=== PATIENT | female | born 1965 | race African-American/Black ===

== ENCOUNTER 2021-05-22 17:31 | Emergency (ER) | payer OTHER, MEDICAID ==
[2021-05-23] MEDS ORDERED: ACET-2708 MT (03:27)
== END 2021-05-22 19:12 | disposition left against medical advice (07) ==
LOC: ER 17:51
DX: Z53.21 Procedure and treatment not carried out due to patient leaving prior to being seen by health care provider (principal)

== ENCOUNTER 2021-05-23 02:14 | Emergency (ER) | payer MEDICARE, MEDICAID ==
[~2021-05-23] VITALS: Ht 165.1 cm; Wt 95.0 kg
[2021-05-23] MEDS ORDERED: ACET-2708 MT (03:27)
[2021-05-23 04:45] VITALS: BP 139/90
== END 2021-05-23 04:53 | disposition home or self-care (01) ==
LOC: ER 02:14
DX: R05.9 Cough, unspecified (principal); R50.9 Fever, unspecified; J45.909 Unspecified asthma, uncomplicated; I10 Essential (primary) hypertension; Z88.0 Allergy status to penicillin; Z20.822 Contact with and (suspected) exposure to COVID-19
CPT/HCPCS: 71045; 99283